=== PATIENT | male | born 1970 | race Caucasian/White ===

== ENCOUNTER 2016-06-06 11:35 | Inpatient (IN) | payer OTHER ==
[~2016-06-06] VITALS: Ht 177.8 cm; Wt 160.7 kg
[2016-06-06 12:13] LABS: HEMOGLOBIN 11.6 gm/dl (14.0-17.5); RED BLOOD COUNT 4.17 M/UL (4.20-5.50); WHITE BLOOD COUNT 7.3 K/UL (4.5-11.0)
[2016-06-06] MEDS ORDERED: HYDRALAZINE HCL50 MG PO (18:08)
[2016-06-06] MEDS ORDERED: COZAAR100 MG PO (18:09)
[2016-06-06] MEDS ORDERED: CATAPRES 0.1MG0.1 MG PO (18:10)
[2016-06-06] MEDS ORDERED: LYRICA20 MG/1 ML PO (18:11)
[2016-06-06] MEDS ORDERED: ZANAFLEX4 MG PO (18:12)
[2016-06-06] MEDS ORDERED: NOVOLOG 10100 UNITS/ SQ (18:14)
[2016-06-06] MEDS ORDERED: LANTUS100 UNIT/1 SQ (18:16)
[2016-06-07 05:21] LABS: HEMOGLOBIN 11.2 gm/dl (14.0-17.5); RED BLOOD COUNT 4.03 M/UL (4.20-5.50); WHITE BLOOD COUNT 7.6 K/UL (4.5-11.0)
[2016-06-08 04:27] LABS: HEMOGLOBIN 12.3 gm/dl (14.0-17.5); RED BLOOD COUNT 4.43 M/UL (4.20-5.50); WHITE BLOOD COUNT 6.4 K/UL (4.5-11.0)
[2016-06-08] MEDS ORDERED: ASPIRIN CHEWABL81 MG PO (17:52)
[2016-06-08] MEDS ORDERED: COREG 3.125M3.125 MG PO (17:54)
== END 2016-06-08 18:18 | disposition home or self-care (01) | DRG 313 ==
LOC: ER1 11:35 → ZEROF 14:35 → PROG CARE 17:22
PROVIDERS: Physician Assistant; ADMIT Internal Medicine
DX: R07.89 Other chest pain (principal); E87.1 Hypo-osmolality and hyponatremia; I12.9 Hypertensive chronic kidney disease with stage 1 through stage 4 chronic kidney disease, or unspecified chronic kidney disease; E11.65 Type 2 diabetes mellitus with hyperglycemia; E66.01 Morbid (severe) obesity due to excess calories; E11.21 Type 2 diabetes mellitus with diabetic nephropathy; E11.22 Type 2 diabetes mellitus with diabetic chronic kidney disease; N18.9 Chronic kidney disease, unspecified; E03.9 Hypothyroidism, unspecified; Z89.511 Acquired absence of right leg below knee; Z79.899 Other long term (current) drug therapy
CPT/HCPCS: ECHO; 36415; 71010; 80053; 80061; 82043; 82550; 82553; 82803; 82962; 83036; 83690; 83735; 83874; 83880; 84100; 84439; 84443; 84484; 85025; 85027; 93005; 93306; 96374; 96375; 99285; J0610; J1650; J1815; J1940; J2270

== ENCOUNTER 2021-09-03 14:22 | Emergency (ER) | payer OTHER ==
[~2021-09-03 14:22] MED LIST: ASPIRIN CHEWABL81 MG PO; CATAPRES 0.1MG0.1 MG PO; COREG 3.125M3.125 MG PO; COZAAR100 MG PO; HYDRALAZINE HCL50 MG PO; LANTUS100 UNIT/1 SQ; LYRICA20 MG/1 ML PO; NOVOLOG 10100 UNITS/ SQ; ZANAFLEX4 MG PO
[2021-09-03 15:11] LABS: HEMOGLOBIN 12.5 gm/dl (14.0-17.5); RED BLOOD COUNT 3.92 M/UL (4.20-5.50); WHITE BLOOD COUNT 6.1 K/UL (4.5-11.0)
[2021-09-03] MEDS ORDERED: CEPHALEXIN500 MG PO (17:16)
== END 2021-09-03 17:45 | disposition home or self-care (01) ==
LOC: ER1 14:22
DX: L98.9 Disorder of the skin and subcutaneous tissue, unspecified (principal); E11.65 Type 2 diabetes mellitus with hyperglycemia; I12.0 Hypertensive chronic kidney disease with stage 5 chronic kidney disease or end stage renal disease; N18.6 End stage renal disease; I48.91 Unspecified atrial fibrillation; E11.22 Type 2 diabetes mellitus with diabetic chronic kidney disease; Z89.511 Acquired absence of right leg below knee; Z99.2 Dependence on renal dialysis; Z79.4 Long term (current) use of insulin; Z95.5 Presence of coronary angioplasty implant and graft; Z79.82 Long term (current) use of aspirin
CPT/HCPCS: 73560; 80053; 83605; 85025; 87040; 99285